=== PATIENT | female | born 1980 | race Two or more races ===

== ENCOUNTER 2022-01-16 07:12 | Inpatient (IN) | payer SELFPAY ==
[~2022-01-16] VITALS: Ht 154.9 cm; Wt 61.8 kg
[2022-01-16 07:30] VITALS: BP 117/54
[2022-01-16] MEDS ORDERED: IV RINGERS,LACTATED 1000ML 1,000 ML IV SCH (08:00)
[2022-01-16] MEDS ORDERED: IV NORMAL SALINE 1000ML BAG 1,000 ML IV SCH ×2 (08:00→13:30)
[2022-01-16] MEDS ORDERED: CITRIC ACID/SODIUM CITRATE 30 ML SOLUTION. PO ONE (08:00)
[2022-01-16] MEDS ORDERED: OXYTOCIN 10 UNIT/ML VIAL. ONE ×2 (08:01→11:04)
[2022-01-16] MEDS ORDERED: PROPOFOL 10 MG/ML (20ML) VIAL. IV ONE (08:01)
[2022-01-16] MEDS ORDERED: LIDOCAINE 1% PF 5 ML VIAL. ONE (08:01)
[2022-01-16] MEDS ORDERED: MORPHINE PF 10 MG/10 ML AMPUL. ONE (08:04)
[2022-01-16] MEDS ORDERED: fentaNYL PF VIAL 100 MCG/2 ML VIAL ONE ×3 (08:04→13:13)
[2022-01-16] MEDS ORDERED: SUCCINYLCHOLINE 200 MG/10 ML VIAL. ONE (08:12)
[2022-01-16 08:25] LABS: HEMATOCRIT 40.2 % (36.0-47.0); HEMOGLOBIN 13.2 g/dL (12.0-15.5); RED BLOOD COUNT 4.33 x10^6/uL (3.50-5.40); RED CELL DISTRIBUTION WIDTH 13.9 % (11.5-14.5)
--- NOTE | 2022-01-16 08:27 | PDOC1 ---
PUBLIC RECORDS OFFICER H&P Date of Admission: Date of Admission: Jan 16, 2022 at 07:12 History of Present Illness: EDC: 01/22/22 LMP: 04[birth year]17/21 41y @ 39.1 by L=21 presented to L&D with ctxs. The pt was found to be dilated to 3 cm with regular ctxs. The pt was scheduled for a repeat C/S the following Wednesday, so she was placed on the schedule for today. The pt s first delivery was a TSVD. The 2nd was a delivery at 30 wks. She states that she presented to the hospital with pain and bleeding. It is unclear if she was in labor. She states that she was told that - the baby could not come down. It is unclear if this means that the baby was malpositioned or she wasnt progressing. She states that the nurse called the doctor with this information at 11 pm and he told them to put her on for a C/S at 7 am. After the delivery she did not see the baby until she was d/suma. At that time the baby was in the ICU. The baby 4 days after . Her next was a scheduled C/S. The first C/S was a vertical midline and the following on was a Pfannenstiel. She would prefer to use the Pfannenstiel for this C/S. Discussed timing of delivery. PMH: Denies PSH: C/S x 2 Meds: PNV All: NKDA OBHx: TSVD x 1, 30wk C/S ( demise), TC/S x 1 SH: no tob, no EtOH FH: noncontributory Allergies: Coded Allergies: No Known Drug Allergies (Unverified , 01/16/22) Physical Exam: PE: GENERAL: No apparent distress. Alert and oriented. HEENT: Head normocephalic, atraumatic. NECK: Supple LUNGS: Clear to auscultation. HEART: RRR, S1, S2 present, pulses intact ABDOMEN: Soft, positive bowel sounds. EXTREMITIES: No cyanosis or edema. NEUROLOGIC: Normal speech, normal tone PSYCHIATRIC: Normal affect, normal mood. SKIN: No ulceration. FHT: 140s +acels/no decels/mLTV [place]: 1-2 min SVE: 3/100/-2 Labs: Laboratory Tests Test 01/16/22 07:45 White Blood Count 8.0 x10^3/uL (4.0-11.0) Red Blood Count 4.33 x10^6/uL (3.50-5.40) Hemoglobin 13.2 g/dL (12.0-15.5) Hematocrit 40.2 % (36.0-47.0) Mean Corpuscular Volume 93 fL (79-100) Mean Corpuscular Hemoglobin 31 pg (25-35) Mean Corpuscular Hemoglobin Concent 33 g/dL (31-37) Red Cell Distribution Width 13.9 % (11.5-14.5) Platelet Count 178 x10^3/uL (140-400) SARS-CoV-2 Antigen (Rapid) Negative (NEGATIVE) Laboratory Tests 01/16/22 07:45 Laboratory Tests 01/16/22 07:45 Assessment & Plan: A/P 41y @ 39.1 by L=21 1.) JOHANNA from [place] 2.) AMA 3.) Prev C/S x 2 - repeat scheduled for 01/19/22 at 0800 4.) H/o demise - unclear etiology 5.) H/o PTD - 30wks 6.) Covid vaccine given 07/28/21, 09/11/21 7.) TDAP given 12/08/21 8.) Fetus cat I FHT 9.) GBS pos CAROLINA PITTS MD Jan 16, 2022 08:27
[2022-01-16] MEDS ORDERED: MIDAZOLAM HCL/PF 2 MG/2 ML VIAL. ONE (09:11)
[2022-01-16] MEDS ORDERED: ROCURONIUM 50 MG/5 ML VIAL. ONE ×2 (09:26→11:33)
[2022-01-16] MEDS ORDERED: SUGAMMADEX SODIUM 200 MG/2 ML VIAL. IVP ONE (09:30)
[2022-01-16 10:54] LABS: BILIRUBIN,URINE NEGATIVE (NEG); CLARITY,URINE CLEAR; COLOR,URINE YELLOW; NITRITE,URINE NEGATIVE (NEG); PH,URINE 5.5 (<5.0-8.0); PROTEIN,URINE NEGATIVE (NEG-TRACE); UROBILINOGEN,URINE 0.2 mg/dL (0.2 mg/dL)
[2022-01-16 10:55] LABS: BACTERIA,URINE FEW /HPF (0-FEW); RBC,URINE 0 /HPF (0-2)
[2022-01-16] MEDS ORDERED: HYDROmorphone 2 MG/ML INJ. ONE (11:33)
[2022-01-16] MEDS ORDERED: ceFAZolin 2GM PREMIX 2 GM/50 ML BAG IV ONE (12:00)
[2022-01-16] MEDS ORDERED: ALBUMIN HUMAN 5% 500 ML IV ONE ×2 (12:30)
--- NOTE | 2022-01-16 12:40 | OP ---
DATE OF SURGERY: 01/16/2022 PREOPERATIVE DIAGNOSIS: Bladder perforation or injury during . POSTOPERATIVE DIAGNOSIS: Bladder perforation or injury during . PROCEDURE PERFORMED: 1. Complex cystorrhaphy or repair of bladder. 2. Lysis of pelvic adhesions. SURGEON: Dr. Mckeon. ANESTHESIA: General. Please see Dr. Quinones's dictation for complete details of fluids and blood loss. This is a 41-year-old female with history of 2 prior C-sections, here for her third , which is performed emergently. During the , there were many adhesions from the uterus to the bladder and there were multiple bladder lacerations occurred when the baby was delivered emergently. I was called to the operating room to assess and repair. Upon inspection and exploring the bladder, there were multiple right lower quadrant adhesions on the bladder, there was a posterior wall laceration of the bladder and an anterior or dome laceration of the bladder. I performed lysis of adhesions, removing the bladder from the right pelvic wall and also lyse the adhesions and remove the bladder from the uterus to free up in order to repair. I then turned my attention to the posterior defect in the bladder, which did appear to spare the ureteral orifices, which were visualized. She did have urine output during the case. The defect was horizontal with a small vertical extension, I closed up the horizontal incision using a 2-0 Vicryl stitch in a running fashion. I then oversewed that using a 3-0 chromic stitch. There was a left posterior wall lateral defect as well, which was closed in the same fashion, I also closed it posteriorly outside the bladder to add extra layer of protection from fistula formation. I then turned my attention to the dome perforation, which was on the anterior dome of the bladder. I used a 3-0 Vicryl stitch in a running fashion to reapproximate the mucosa and then a 3-0 Vicryl stitch to oversew the bladder edge to provide a 2-layer closure of the dome of the bladder. The closure was made watertight to the best of my ability. There was minimal blood loss. All sponge and instrument counts were correct at the time of my departure. Dr. Quinones will place a SAM drain, which can remain in place for approximately 1 week. I would leave the Chavez catheter in place for approximately one month and then perform a cystogram before removing the catheter. She should have a CT urogram to ensure that the ureters were not involved in the bladder injury; however, I did visualize the UOs and there was urine refluxing into the bladder, so there is a low suspicion for ureteral injury, but this is just a precaution. Again, she will need to be discharged home with a Chavez catheter and SAM drain, likely SAM for a week and Chavez for 1 month. TALYA/EDWIGE DR: Jose TID: [id number]
[2022-01-16] MEDS ORDERED: MMR per PROTOCOL. MC PRN (13:30)
[2022-01-16] MEDS ORDERED: TDaP (BOOSTRIX) per PROTOCOL. MC PRN (13:30)
[2022-01-16] MEDS ORDERED: 0.9 % SODIUM CHLORIDE 10 ML DISP.SYRIN. IV PRN (13:30)
[2022-01-16] MEDS ORDERED: oxyCODONE/APAP 5/325 1 TAB TABLET PO PRN (13:30)
[2022-01-16] MEDS ORDERED: NALOXONE 0.4 MG/ML VIAL. IV PRN (13:30)
[2022-01-16] MEDS ORDERED: BENZOCAINE 20% TOPICAL AEROSOL SPRAY 57GM CAN. TP PRN (13:30)
[2022-01-16] MEDS ORDERED: ACETAMINOPHEN 325 MG TABLET. PO PRN (13:30)
[2022-01-16] MEDS ORDERED: diphenhydrAMINE ORAL ELIXIR 12.5 MG/5 ML ML PO PRN (13:30)
[2022-01-16] MEDS ORDERED: OXYTOCIN 30 UNIT/500 ML PREMIX 500 ML IV PRN (13:30)
[2022-01-16] MEDS: MORPHINE SULFATE 30 ML IV PRN ×2 (13:43→23:33)
--- NOTE | 2022-01-16 16:41 | PDOC4 ---
OPERATIVE NOTE: PreOp Dx: 1.) IUP @ 39.1 by L=21, 2.) Active labor, 3.) JOHANNA from [place], 4.) AMA, 5.) Prev C/S x 2, 6.) H/o demise - unclear etiology, 7.) H/o PTD - 30wks, 8.) GBS pos PostOp Dx: same Procedure: RLTCS Surgeon: Sharda Pitts Anesthesia: Spinal -> GETA EBL: 1500 cc Fluids 4400 cc crystalloid, 1 L colloid Complications: Bladder injury Findings: viable female delivered at 0900. Wt 6 lb 13 oz. APGARS 7/9. Significant serosal adhesion in the midline and on the right lateral side wall. Nml tubes and ovaries Path: Cord blood and placenta CAROLINA PITTS MD Jan 16, 2022 16:41
[2022-01-16] MEDS: FERROUS SULFATE 325 MG TABLET. PO SCH (17:00)
[2022-01-16 17:07] LABS: BASO % 0 % (0-3); EOS % 0 % (0-3); HEMATOCRIT 26.4 % (36.0-47.0); HEMOGLOBIN 8.8 g/dL (12.0-15.5); LYMPH % 11 % (24-48); MEAN CORPUSCULAR HEMOGLOBIN 31 pg (25-35); MEAN CORPUSCULAR HGB CONC 33 g/dL (31-37); MEAN CORPUSCULAR VOLUME 92 fL (79-100); MONO # 0.5 x10^3/uL (0.0-1.1); MONO % 6 % (0-9); NEUT # 7.6 x10^3/uL (1.8-7.7); NEUT % 83 % (31-73); PLATELET COUNT 139 x10^3/uL (140-400); RED BLOOD COUNT 2.87 x10^6/uL (3.50-5.40); WHITE BLOOD COUNT 9.1 x10^3/uL (4.0-11.0)
[2022-01-16 17:12] LABS: CREATININE 0.6 mg/dL (0.6-1.0); GFR 111.3
--- NOTE | 2022-01-16 18:40 | OP ---
DATE OF SURGERY: 01/16/2022 PREOPERATIVE DIAGNOSES: 1. Intrauterine at 39 weeks and 1 day by last menstrual period equal to 21-week ultrasound. 2. Active labor. 3. Transfer of care from [place]. 4. Advanced maternal age. 5. Previous section x 2. 6. History of demise with unclear etiology. 7. History of delivery at 30 weeks. 8. Group B Streptococcus positive. POSTOPERATIVE DIAGNOSES: 1. Intrauterine at 39 weeks and 1 day by last menstrual period equal to 21-week ultrasound. 2. Active labor. 3. Transfer of care from [place]. 4. Advanced maternal age. 5. Previous section x 2. 6. History of demise with unclear etiology. 7. History of delivery at 30 weeks. 8. Group B Streptococcus positive. PROCEDURES: 1. Repeat low transverse . 2. Cystotomy repair. SURGEON: Deejay Quinones MD ANESTHESIA: Spinal, converted to general endotracheal intubation. ESTIMATED BLOOD LOSS: 1500 mL. FLUIDS: 4400 mL of crystalloid and 1 liter of colloid. COMPLICATIONS: Bladder injury. FINDINGS: Viable female delivered at 0900, weighing 6 pounds 13 ounces with Apgars of 7 and 9. Significant serosal adhesions noted from the midline to the right lateral sidewall. Normal tubes and ovaries. PATHOLOGY: Cord blood and placenta. DESCRIPTION OF PROCEDURE: The patient was taken to the operating room, where spinal was placed without difficulty. The patient was prepped and draped in a normal sterile fashion. Her previous Pfannenstiel skin incision was used and the incision was carried down to underlying layer of fascia. The fascia was then nicked in the midline. The fascial incision was then extended laterally with Castelan scissors. Superior aspect of the fascial incision was grasped with Tanja clamps, elevated and the underlying rectus muscle was dissected off with a scalpel. Attention was then turned to the inferior aspect of the fascial incision, which was grabbed with Tanja clamps, elevated and the underlying rectus muscle was dissected off with Castelan scissors. The midline of the rectus muscle was identified and to allow for the peritoneum to be grasped with 2 hemostats. The peritoneum was then tented up and entered sharply with Metzenbaum scissors. At that point, digital examination of the peritoneal opening revealed significant adhesions on the right side to the midline. At that point, the peritoneal incision was extended superiorly and inferiorly with good visualization of bladder with traction and countertraction. At that point, the serosal adhesion was still felt on the right side, it could not easily be taken down. At that point, the Andre ring was then placed to better visualize the lower uterine segment. There was a significant serosal adhesion on the midline of the uterus. It was difficult to tell if the adhesion contained the bladder. There was no definitive plane. A bladder flap was attempted to be created, but taking down the serosal adhesions led to heavy bleeding, leading me to believe that the adhesion was more of a serosal adhesion than the bladder being adhesed so high on the lower uterine segment. At that point, the lower uterine segment was incised in transverse fashion with the scalpel. Hysterotomy was extended with traction and countertraction. At that point, the infant's head was flexed and brought to the hysterotomy. The rest of was delivered atraumatically. The cord was double clamped and cut and the was handed over to the waiting hospice superintendent. At that point, the placenta was removed manually and cleared of all clots and debris. Examination of the uterine incision revealed the Chavez catheter exiting the opening. Once the bladder injury was identified, Urology was consulted for evaluation and repair. See separate operative note by Dr. Mckeon for detail. Once the bladder repair portion had been completed, the uterine hysterotomy was then repaired with #1 chromic in running locked fashion. Second layer of the same suture was used to imbricate. There was a little bleeding at the midline that was made hemostatic with a evdplr-oh-icrud stitch. At that point, the gutters were copiously irrigated and cleared of all clots and debris. An incision was made approximately two-thirds between the ischial spine on the right, so that the SAM drain was placed into the left lateral edge of the bladder underneath the bladder. Once the SAM was placed, the peritoneum was reapproximated with 2-0 Vicryl in a running fashion. The muscle was reapproximated with 2-0 Vicryl in a running fashion. The fascia was then closed with 0 Vicryl in a running fashion. The skin was closed with 3-0 Monocryl in a subcuticular manner. Sponges, laps and needles were correct x 5. Two grams of Ancef were given prior to the procedure and another dose was given due to the duration of the surgery. The patient was taken to recovery room in stable condition. AMANDA DR: Ita TID: [id number] MTDD
[2022-01-16] MEDS ORDERED: IOHEXOL 300 MG/ML 100ML VIAL. IV ONE (19:15)
[2022-01-16] MEDS ORDERED: CONTRAST GIVEN. MC PRN (19:30)
--- NOTE | 2022-01-16 19:31 | NUR ---
Transported pt by bed to Radiology for CT scan. Chavez to dependent drainage, SAM drain secured, IV on pump, TUB TENDER pump, x2 personell to transfer. SURN and GTRN
--- NOTE | 2022-01-16 20:28 | NUR ---
Refer to QS charted VS graphic stored to pt record on monitored bed.
--- NOTE | 2022-01-16 20:29 | NUR ---
Returned Pt from CT Radiology back to room 385 L&D by gladis. RONNY. Pt tolerated procedure well. pt signalled thumbs up doing ok. pt using DYE LAB TECHNICIAN demand button as needed for pain control.
[2022-01-16 20:34] VITALS: BP 102/68
--- NOTE | 2022-01-16 23:55 | RAD ---
PQRS Compliance Statement: One or more of the following individualized dose reduction techniques were utilized for this examinat ion: 1. Automated exposure control 2. Adjustment of the mA and/or kV according to patient size 3. Use of iterative reconstruction technique CT ABDOMEN+PELVIS WO+W Clinical Indication: Reason: BLADDER REAPIR AFTER S/P C SECTION URUGRAM PROTOCAL / Spl. Instructions: DO @ 1900 PER PROVIDER, OMNI 300, 75 ML IV, PERRY MALFUNTION LAST IMAG 20M / History: Comparison: None. TECHNIQUE: Helical CT imaging of the abdomen and pelvis is performed before and after 75 cc of Omnipa que 300 IV contrast. There are portal venous and delayed phases. Findings: There is bilateral dependent atelectasis. The cardiac size is normal. There is expected intraperitoneal free air. The liver, gallbladder, spleen, pancreas, adrenal glands, abdominal aorta, and kidneys are normal. There are prominent bilateral gonadal veins. There is uterus. No fluid in the endometrial canal is identified. There is a anterior uterine fibroid measuring 5.4 x 5 x 6 cm. Much of the colon is decompressed. There is no dilated small bowel. The stomach is unremarkable. Ther e is air along the rectus muscles inferiorly, likely postsurgical. There is a surgical drain in the pelvis. There is a Chvaez catheter in the urinary bladder. No thicken ing of the urinary bladder wall. There is a small amount of fluid in the bladder. On the delay phase images, the urinary bladder is nearly completely opacified with IV contrast. No extravasation of cont rast is identified. No pelvic free fluid is seen. No acute bone abnormality. IMPRESSION: Enlarged uterus. There is a surgical drain in the pelvis. There is no urinary bladder leak . Electronically signed by: Karthikeyan Rivas MD (01/16/2022 11:52 PM) [facility]
[2022-01-17 00:01] VITALS: BP 99/52
[2022-01-17 03:26] VITALS: BP 92/55
[2022-01-17 06:58] LABS: HEMATOCRIT 23.2 % (36.0-47.0); HEMOGLOBIN 7.8 g/dL (12.0-15.5); RED BLOOD COUNT 2.51 x10^6/uL (3.50-5.40); RED CELL DISTRIBUTION WIDTH 14.3 % (11.5-14.5); WHITE BLOOD COUNT 6.5 x10^3/uL (4.0-11.0)
[2022-01-17 08:00] VITALS: BP 104/57
[2022-01-17] MEDS: FERROUS SULFATE 325 MG TABLET. PO SCH ×2 (08:00→17:00)
[2022-01-17] MEDS: MULTIVITAMIN with MINERAL TABLET. PO SCH (09:00)
[2022-01-17] MEDS: PRENATAL MULTIVITAMIN TABLET. PO SCH (09:00)
[2022-01-17] MEDS: IBUPROFEN 400 MG TABLET. PO PRN ×2 (10:32→19:24)
[2022-01-17 10:45] LABS: ALBUMIN 2.5 g/dL (3.4-5.0); CALCIUM 7.4 mg/dL (8.5-10.1); CREATININE 0.5 mg/dL (0.6-1.0); GFR 137.4; POTASSIUM 3.9 mmol/L (3.5-5.1); TOTAL BILIRUBIN 1.1 mg/dL (0.2-1.0)
[2022-01-17] MEDS: oxyCODONE/APAP 5/325 1 TAB TABLET PO PRN ×3 (12:30→23:34)
--- NOTE | 2022-01-17 12:32 | PDOC ---
PROGRESS NOTE DATE OF SERVICE: DATE: 01/17/22 TIME: 12:29 CHIEF COMPLAINT: post SUBJECTIVE: HPI: S/p 01/16 with bladder repair by Dr. Mckeon. Barbour catheter draining with good urine output. Yellow urine in tubing. SAM with SS drainage. No complaints from patient. OBJECTIVE: Vital Signs: Vital Signs Date Time Temp Pulse Resp B/P (MAP) Pulse Ox O2 Delivery O2 Flow Rate FiO2 01/17/22 08:00 98.6 90 13 104/57 (73) 98 Room Air 98.6 01/17/22 04:00 97.9 76 16 93 97.9 01/17/22 03:26 74 16 92/55 (67) 95 01/17/22 00:03 16 98 Room Air 01/17/22 00:01 98.0 82 16 99/52 (68) 95 98.0 01/16/22 23:33 18 99 Room Air 01/16/22 20:34 98.6 82 18 102/68 (79) 99 Room Air 98.6 01/16/22 20:30 Room Air 01/16/22 16:58 Nasal Cannula 2.0 01/16/22 13:43 16 100 NonRebreather Mask 6.0 I & O Intake and Output 01/17/22 07:00 Intake Total 50 ml Output Total 3620 ml Balance -3570 ml Intake Oral 20 ml IV Total 30 ml Output Urine Total 3475 ml Drainage Total 145 ml # Sanitary Pads 0 PHYSICAL EXAM: Physical Exam: General: Pleasant, no acute distress, well groomed Eyes: conjunctiva anicteric, eyes full range of motion ENT: moist oral mucosa, normal dentition Neck: Trachea midline, no masses Respiratory: unlabored breathing, not using accessory muscles, no crackles or wheezes Abdomen: nontender, nondistended, no hepatosplenomegaly, no masses. incision with dressing in place. SAM with SS output. Skin: no rashes or skin lesions on visualized skin Psych: normal mood, affect. Alert and oriented x 3. : barbour catheter with yellow urine in tubing LABS: Laboratory Tests Test 01/16/22 07:31 01/16/22 07:45 01/16/22 16:42 01/17/22 06:25 Urine Collection Type Unknown Urine Color Yellow Urine Clarity Clear Urine pH 5.5 (<5.0-8.0) Urine Specific [place] 1.025 (1.000-1.030) Urine Protein Negative mg/dL (NEG-TRACE) Urine Glucose (UA) Negative mg/dL (NEG) Urine Ketones (Stick) Negative mg/dL (NEG) Urine Blood Negative (NEG) Urine Nitrite Negative (NEG) Urine Bilirubin Negative (NEG) Urine Urobilinogen Dipstick 0.2 mg/dL (0.2 mg/dL) Urine Leukocyte Esterase Small (NEG) Urine RBC 0 /HPF (0-2) Urine WBC 5-10 /HPF (0-4) Urine Squamous Epithelial Cells Many /LPF Urine Bacteria Few /HPF (0-FEW) White Blood Count 8.0 x10^3/uL (4.0-11.0) 9.1 x10^3/uL (4.0-11.0) 6.5 x10^3/uL (4.0-11.0) Red Blood Count 4.33 x10^6/uL (3.50-5.40) 2.87 x10^6/uL (3.50-5.40) 2.51 x10^6/uL (3.50-5.40) Hemoglobin 13.2 g/dL (12.0-15.5) 8.8 g/dL (12.0-15.5) 7.8 g/dL (12.0-15.5) Hematocrit 40.2 % (36.0-47.0) 26.4 % (36.0-47.0) 23.2 % (36.0-47.0) Mean Corpuscular Volume 93 fL (79-100) 92 fL (79-100) 92 fL (79-100) Mean Corpuscular Hemoglobin 31 pg (25-35) 31 pg (25-35) 31 pg (25-35) Mean Corpuscular Hemoglobin Concent 33 g/dL (31-37) 33 g/dL (31-37) 34 g/dL (31-37) Red Cell Distribution Width 13.9 % (11.5-14.5) 14.0 % (11.5-14.5) 14.3 % (11.5-14.5) Platelet Count 178 x10^3/uL (140-400) 139 x10^3/uL (140-400) 146 x10^3/uL (140-400) Treponema pallidum Antibody Nonreactive (Nonreactive) Coronavirus (COVID-19)(PCR) Not detected (NOT DETECTD) SARS-CoV-2 Antigen (Rapid) Negative (NEGATIVE) Neutrophils (%) (Auto) 83 % (31-73) Lymphocytes (%) (Auto) 11 % (24-48) Monocytes (%) (Auto) 6 % (0-9) Eosinophils (%) (Auto) 0 % (0-3) Basophils (%) (Auto) 0 % (0-3) Neutrophils # (Auto) 7.6 x10^3/uL (1.8-7.7) Lymphocytes # (Auto) 1.0 x10^3/uL (1.0-4.8) Monocytes # (Auto) 0.5 x10^3/uL (0.0-1.1) Eosinophils # (Auto) 0.0 x10^3/uL (0.0-0.7) Basophils # (Auto) 0.0 x10^3/uL (0.0-0.2) Creatinine 0.6 mg/dL (0.6-1.0) 0.5 mg/dL (0.6-1.0) Estimated GFR (Cockcroft-Gault) 111.3 137.4 Sodium Level 140 mmol/L (136-145) Potassium Level 3.9 mmol/L (3.5-5.1) Chloride Level 106 mmol/L (98-107) Carbon Dioxide Level 27 mmol/L (21-32) Anion Gap 7 (6-14) Blood Urea Nitrogen 5 mg/dL (7-20) BUN/Creatinine Ratio 10 (6-20) Glucose Level 78 mg/dL (70-99) Calcium Level 7.4 mg/dL (8.5-10.1) Total Bilirubin 1.1 mg/dL (0.2-1.0) Aspartate Amino Transf (AST/SGOT) 28 U/L (15-37) Alanine Aminotransferase (ALT/SGPT) 20 U/L (14-59) Alkaline Phosphatase 55 U/L (46-116) Total Protein 5.0 g/dL (6.4-8.2) Albumin 2.5 g/dL (3.4-5.0) Albumin/Globulin Ratio 1.0 (1.0-1.7) MEDICATIONS: Current Medications Medications (Trade) Dose Ordered Sig/Regino Start Time Stop Time Status Last Admin Dose Admin Acetaminophen (Tylenol) 650 mg PRN Q6HRS PRN 01/16/22 13:30 Albumin Human 500 ml @ As Directed STK-MED ONCE 01/16/22 12:30 01/16/22 12:31 DC Benzocaine (Americaine) 1 spray PRN Q4HRS PRN 01/16/22 13:30 Cefazolin Sodium/ Dextrose 50 ml @ 100 mls/hr 1X ONCE 01/16/22 12:15 01/16/22 12:44 DC Citric Acid/ Sodium Citrate (Bicitra) 30 ml 1X ONCE 01/16/22 08:00 01/16/22 08:01 DC 01/16/22 08:00 30 ML Diphenhydramine HCl (Benadryl Oral Elixir) 12.5 mg PRN Q6HRS PRN 01/16/22 13:30 Docusate Sodium (Colace) 100 mg PRN BID PRN 01/16/22 13:30 Fentanyl Citrate (Fentanyl 2ml Vial) 100 mcg STK-MED ONCE 01/16/22 13:13 01/16/22 13:13 DC Ferrous Sulfate (Feosol) 325 mg BIDWMEALS 01/16/22 17:00 Hydromorphone HCl (Dilaudid) 2 mg STK-MED ONCE 01/16/22 11:33 01/16/22 11:34 DC Ibuprofen (Motrin) 800 mg PRN Q8HRS PRN 01/16/22 13:30 01/17/22 10:32 800 MG Info (CONTRAST GIVEN -- Rx MONITORING) 1 each PRN DAILY PRN 01/16/22 19:30 01/18/22 19:29 Info (Do NOT chart on this placeholder) 1 ea PRN 1X PRN 01/16/22 13:30 Iohexol (Omnipaque 300 Mg/ml) 75 ml 1X ONCE 01/16/22 19:15 01/16/22 19:16 DC 01/16/22 19:48 75 ML Lidocaine HCl (Xylocaine-Mpf 1% 5ml Vial) 5 ml STK-MED ONCE 01/16/22 08:01 01/16/22 08:01 DC Midazolam HCl (Versed) 2 mg STK-MED ONCE 01/16/22 09:11 01/16/22 09:12 DC Morphine Sulfate 30 ml @ 0 mls/hr CONT PRN PRN 01/16/22 13:30 01/16/22 23:33 6 MLS/HR Morphine Sulfate (Morphine Preservative Free) 10 mg STK-MED ONCE 01/16/22 08:04 01/16/22 08:05 DC Multivitamins (Thera M Plus) 1 tab DAILY 01/17/22 09:00 Naloxone HCl (Narcan) 0.4 mg PRN Q2MIN PRN 01/16/22 13:30 Oxycodone/ Acetaminophen (Percocet 5/325) 2 tab PRN Q4HRS PRN 01/16/22 13:30 Oxytocin 500 ml @ 125 mls/hr CONT PRN 01/16/22 13:30 01/16/22 21:29 DC Oxytocin (Pitocin) 10 unit STK-MED ONCE 01/16/22 11:04 01/16/22 11:04 DC Multivit/ Folic Acid/Iron (Multivitamin ) 1 tab DAILY 01/17/22 09:00 Propofol (Diprivan) 200 mg STK-MED ONCE 01/16/22 08:01 01/16/22 08:01 DC Ringer's Solution 1,000 ml @ 125 mls/hr Q8H 01/16/22 08:00 01/16/22 13:20 DC Rocuronium [place] (Zemuron) 50 mg STK-MED ONCE 01/16/22 11:33 01/16/22 11:33 DC Sodium Chloride 1,000 ml @ 25 mls/hr Q24H 01/16/22 13:30 01/16/22 16:52 25 MLS/HR Sodium Chloride (Normal Saline Flush) 3 ml QSHIFT PRN 01/16/22 13:30 Succinylcholine Chloride (Anectine) 200 mg STK-MED ONCE 01/16/22 08:12 01/16/22 08:12 DC Sugammadex Sodium (Bridion) 200 mg 1X ONCE 01/16/22 09:30 01/16/22 09:31 DC ASSESSMENT & PLAN ---S/p bladder repair CT A/P completed last night without abnormality. Creat stable Barbour to stay in for one month. SAM to stay in for one week. Will see patient tomorrow for more education for discharge. At this time, plan is to discharge on Wednesday. Agree with plan Follow up is essential for the best outcome Dr Mckeon D/w Dr. MckeonPHYSICAL EXAMINATION: GENERAL: Gen. appearance: No acute distress. Mood/affect: Pleasant. HEENT: Head: Normocephalic, atraumatic. Airway Impairment: No. CHEST: Shape and expansion: Normal. Expansion: Normal. SKIN: General: Warm. Color: Good. GENITOURINARY:External genitalia - wnl. NEUROLOGICAL: Mental status: Alert and oriented 3. Language: Normal. Urology will follow. DORIS ALBERT APRN Jan 17, 2022 12:32 ALLYSON MCKEON DO Jan 18, 2022 14:51
[2022-01-17 12:50] VITALS: BP 105/58
--- NOTE | 2022-01-17 14:11 | PDOC ---
PLUG STITCHER PROGRESS NOTE Date of Service: DATE: 01/17/22 TIME: 14:04 Subjective: Pain well managed with PO meds. Pt. reports generalized pruritus, onset last noc, has increased today. Tolerates regular diet without complaints. Objective: Objective: Abd dressing c/d/i, SAM with SS drainage. Chavez to DD. FF @ U/1, scant lochia. No rash/hives/erythema. Vital Signs: Vital Signs Date Time Temp Pulse Resp B/P (MAP) Pulse Ox O2 Delivery O2 Flow Rate FiO2 01/16/22 07:30 98.5 80 18 117/54 (75) Room Air 98.5 01/16/22 13:43 100 6.0 Vital Signs Date Time Temp Pulse Resp B/P (MAP) Pulse Ox O2 Delivery O2 Flow Rate FiO2 01/17/22 12:50 80 14 105/58 (74) 94 Room Air 01/17/22 08:00 98.6 98.6 01/16/22 16:58 2.0 Labs: Laboratory Tests Test 01/16/22 16:42 01/17/22 06:25 White Blood Count 9.1 x10^3/uL (4.0-11.0) 6.5 x10^3/uL (4.0-11.0) Red Blood Count 2.87 x10^6/uL (3.50-5.40) L 2.51 x10^6/uL (3.50-5.40) L Hemoglobin 8.8 g/dL (12.0-15.5) L 7.8 g/dL (12.0-15.5) L Hematocrit 26.4 % (36.0-47.0) L 23.2 % (36.0-47.0) L Mean Corpuscular Volume 92 fL (79-100) 92 fL (79-100) Mean Corpuscular Hemoglobin 31 pg (25-35) 31 pg (25-35) Mean Corpuscular Hemoglobin Concent 33 g/dL (31-37) 34 g/dL (31-37) Red Cell Distribution Width 14.0 % (11.5-14.5) 14.3 % (11.5-14.5) Platelet Count 139 x10^3/uL (140-400) L 146 x10^3/uL (140-400) Neutrophils (%) (Auto) 83 % (31-73) H Lymphocytes (%) (Auto) 11 % (24-48) L Monocytes (%) (Auto) 6 % (0-9) Eosinophils (%) (Auto) 0 % (0-3) Basophils (%) (Auto) 0 % (0-3) Neutrophils # (Auto) 7.6 x10^3/uL (1.8-7.7) Lymphocytes # (Auto) 1.0 x10^3/uL (1.0-4.8) Monocytes # (Auto) 0.5 x10^3/uL (0.0-1.1) Eosinophils # (Auto) 0.0 x10^3/uL (0.0-0.7) Basophils # (Auto) 0.0 x10^3/uL (0.0-0.2) Creatinine 0.6 mg/dL (0.6-1.0) 0.5 mg/dL (0.6-1.0) L Estimated GFR (Cockcroft-Gault) 111.3 137.4 Sodium Level 140 mmol/L (136-145) Potassium Level 3.9 mmol/L (3.5-5.1) Chloride Level 106 mmol/L (98-107) Carbon Dioxide Level 27 mmol/L (21-32) Anion Gap 7 (6-14) Blood Urea Nitrogen 5 mg/dL (7-20) L BUN/Creatinine Ratio 10 (6-20) Glucose Level 78 mg/dL (70-99) Calcium Level 7.4 mg/dL (8.5-10.1) L Total Bilirubin 1.1 mg/dL (0.2-1.0) H Aspartate Amino Transferase (AST) 28 U/L (15-37) Alanine Aminotransferase (ALT) 20 U/L (14-59) Alkaline Phosphatase 55 U/L (46-116) Total Protein 5.0 g/dL (6.4-8.2) L Albumin 2.5 g/dL (3.4-5.0) L Albumin/Globulin Ratio 1.0 (1.0-1.7) Laboratory Tests 01/16/22 16:42 01/17/22 06:25 Laboratory Tests 01/16/22 16:42 01/17/22 06:25 Laboratory Tests 01/17/22 06:25 Physical Exam: GENERAL: No apparent distress. Alert and oriented. HEENT: Head normocephalic, atraumatic. NECK: Supple LUNGS: Clear to auscultation. HEART: RRR, S1, S2 present, pulses intact ABDOMEN: Soft, positive bowel sounds. EXTREMITIES: No cyanosis or edema. NEUROLOGIC: Normal speech, normal tone PSYCHIATRIC: Normal affect, normal mood. SKIN: No ulceration. Assessment & Plan: POD#1 s/p rLTCS with bladder repair. Routine PP course. Increase activity as tolerated. Plan Pepcid BID, Benadryl now. Up to bedside today. Urology continues to follow. Anticipate d/c Wednesday. GEETA LUCERO CNM Jan 17, 2022 14:11
[2022-01-17] MEDS: FAMOTIDINE 20 MG TABLET. PO SCH ×2 (14:42→21:57)
[2022-01-17 16:30] VITALS: BP 102/55
[2022-01-17 21:55] VITALS: BP 95/50
[2022-01-18] MEDS: IBUPROFEN 400 MG TABLET. PO PRN ×3 (04:43→23:33)
[2022-01-18 04:45] VITALS: BP 96/63
[2022-01-18 08:15] VITALS: BP 111/63
[2022-01-18] MEDS: MULTIVITAMIN with MINERAL TABLET. PO SCH (09:00)
--- NOTE | 2022-01-18 09:02 | PDOC ---
HEALTHCARE OR MEDICAL PROGRESS NOTE Date of Service: DATE: 01/18/22 TIME: 08:58 Subjective: Doing well. + flatus. Tolerates diet without difficulty. Otherwise denies complaints. Objective: Objective: dressing c/d/i. SAM with SS drainage. Chavez with pink tinged urine to DD, clearing. FF @ U/1, scant lochia. Vital Signs: Vital Signs Date Time Temp Pulse Resp B/P (MAP) Pulse Ox O2 Delivery O2 Flow Rate FiO2 01/17/22 08:00 98.6 90 13 104/57 (73) 98 Room Air 98.6 Vital Signs Date Time Temp Pulse Resp B/P (MAP) Pulse Ox O2 Delivery O2 Flow Rate FiO2 01/18/22 04:45 98.6 74 14 96/63 (74) Room Air 98.6 01/17/22 16:30 96 Physical Exam: GENERAL: No apparent distress. Alert and oriented. HEENT: Head normocephalic, atraumatic. NECK: Supple LUNGS: Clear to auscultation. HEART: RRR, S1, S2 present, pulses intact ABDOMEN: Soft, positive bowel sounds. EXTREMITIES: No cyanosis or edema. NEUROLOGIC: Normal speech, normal tone PSYCHIATRIC: Normal affect, normal mood. SKIN: No ulceration. Assessment & Plan: POD#2 s/p rLTCS with bladder repair. Up to shower today, remove dressing with assistance. Increase activity as tolerated. GEETA LUCERO CNM Jan 18, 2022 09:02
--- NOTE | 2022-01-18 10:26 | PDOC ---
PROGRESS NOTE DATE OF SERVICE: DATE: 01/18/22 TIME: 10:23 CHIEF COMPLAINT: SUBJECTIVE: HPI: Land [employer] phone used for entire visit Patient doing well this morning. Denies any complaints. Barbour catheter with clear pink urine. No clots noted. SAM with SS output. Output trending down. OBJECTIVE: Vital Signs: Vital Signs Date Time Temp Pulse Resp B/P (MAP) Pulse Ox O2 Delivery O2 Flow Rate FiO2 01/18/22 04:45 98.6 74 14 96/63 (74) Room Air 98.6 01/18/22 00:05 Room Air 01/17/22 23:34 Room Air 01/17/22 21:55 98.7 82 18 95/50 (65) Room Air 98.7 01/17/22 21:55 Room Air 01/17/22 20:28 Room Air 01/17/22 19:26 16 Room Air 01/17/22 16:30 98.7 80 16 102/55 (71) 96 Room Air 98.7 01/17/22 12:50 98.6 80 14 105/58 (74) 94 Room Air 98.6 01/17/22 12:30 20 I & O Intake and Output 01/18/22 07:00 Intake Total 1500 ml Output Total 4573 ml Balance -3073 ml Intake Oral 1500 ml Output Urine Total 4500 ml Drainage Total 73 ml PHYSICAL EXAM: Physical Exam: General: Pleasant, no acute distress, well groomed Eyes: conjunctiva anicteric, eyes full range of motion ENT: moist oral mucosa, normal dentition Neck: Trachea midline, no masses Respiratory: unlabored breathing, not using accessory muscles, no crackles or wheezes Cardiovascular: Regular rate and rhythm, no peripheral edema Abdomen: nontender, nondistended, no hepatosplenomegaly, no masses Skin: incision with dressing in place, SAM with SS output Psych: normal mood, affect. Alert and oriented x 3. :barbour catheter with clear pink urine LABS: Laboratory Tests Test 01/16/22 07:31 01/16/22 07:45 01/16/22 16:42 01/17/22 06:25 Urine Collection Type Unknown Urine Color Yellow Urine Clarity Clear Urine pH 5.5 (<5.0-8.0) Urine Specific [place] 1.025 (1.000-1.030) Urine Protein Negative mg/dL (NEG-TRACE) Urine Glucose (UA) Negative mg/dL (NEG) Urine Ketones (Stick) Negative mg/dL (NEG) Urine Blood Negative (NEG) Urine Nitrite Negative (NEG) Urine Bilirubin Negative (NEG) Urine Urobilinogen Dipstick 0.2 mg/dL (0.2 mg/dL) Urine Leukocyte Esterase Small (NEG) Urine RBC 0 /HPF (0-2) Urine WBC 5-10 /HPF (0-4) Urine Squamous Epithelial Cells Many /LPF Urine Bacteria Few /HPF (0-FEW) White Blood Count 8.0 x10^3/uL (4.0-11.0) 9.1 x10^3/uL (4.0-11.0) 6.5 x10^3/uL (4.0-11.0) Red Blood Count 4.33 x10^6/uL (3.50-5.40) 2.87 x10^6/uL (3.50-5.40) 2.51 x10^6/uL (3.50-5.40) Hemoglobin 13.2 g/dL (12.0-15.5) 8.8 g/dL (12.0-15.5) 7.8 g/dL (12.0-15.5) Hematocrit 40.2 % (36.0-47.0) 26.4 % (36.0-47.0) 23.2 % (36.0-47.0) Mean Corpuscular Volume 93 fL (79-100) 92 fL (79-100) 92 fL (79-100) Mean Corpuscular Hemoglobin 31 pg (25-35) 31 pg (25-35) 31 pg (25-35) Mean Corpuscular Hemoglobin Concent 33 g/dL (31-37) 33 g/dL (31-37) 34 g/dL (31-37) Red Cell Distribution Width 13.9 % (11.5-14.5) 14.0 % (11.5-14.5) 14.3 % (11.5-14.5) Platelet Count 178 x10^3/uL (140-400) 139 x10^3/uL (140-400) 146 x10^3/uL (140-400) Treponema pallidum Antibody Nonreactive (Nonreactive) Coronavirus (COVID-19)(PCR) Not detected (NOT DETECTD) SARS-CoV-2 Antigen (Rapid) Negative (NEGATIVE) Neutrophils (%) (Auto) 83 % (31-73) Lymphocytes (%) (Auto) 11 % (24-48) Monocytes (%) (Auto) 6 % (0-9) Eosinophils (%) (Auto) 0 % (0-3) Basophils (%) (Auto) 0 % (0-3) Neutrophils # (Auto) 7.6 x10^3/uL (1.8-7.7) Lymphocytes # (Auto) 1.0 x10^3/uL (1.0-4.8) Monocytes # (Auto) 0.5 x10^3/uL (0.0-1.1) Eosinophils # (Auto) 0.0 x10^3/uL (0.0-0.7) Basophils # (Auto) 0.0 x10^3/uL (0.0-0.2) Creatinine 0.6 mg/dL (0.6-1.0) 0.5 mg/dL (0.6-1.0) Estimated GFR (Cockcroft-Gault) 111.3 137.4 Sodium Level 140 mmol/L (136-145) Potassium Level 3.9 mmol/L (3.5-5.1) Chloride Level 106 mmol/L (98-107) Carbon Dioxide Level 27 mmol/L (21-32) Anion Gap 7 (6-14) Blood Urea Nitrogen 5 mg/dL (7-20) BUN/Creatinine Ratio 10 (6-20) Glucose Level 78 mg/dL (70-99) Calcium Level 7.4 mg/dL (8.5-10.1) Total Bilirubin 1.1 mg/dL (0.2-1.0) Aspartate Amino Transf (AST/SGOT) 28 U/L (15-37) Alanine Aminotransferase (ALT/SGPT) 20 U/L (14-59) Alkaline Phosphatase 55 U/L (46-116) Total Protein 5.0 g/dL (6.4-8.2) Albumin 2.5 g/dL (3.4-5.0) Albumin/Globulin Ratio 1.0 (1.0-1.7) Microbiology 01/16/22 Urine Culture - Final, Complete MEDICATIONS: Current Medications Medications (Trade) Dose Ordered Sig/Regino Start Time Stop Time Status Last Admin Dose Admin Acetaminophen (Tylenol) 650 mg PRN Q6HRS PRN 01/16/22 13:30 Albumin Human 500 ml @ As Directed STK-MED ONCE 01/16/22 12:30 01/16/22 12:31 DC Benzocaine (Americaine) 1 spray PRN Q4HRS PRN 01/16/22 13:30 Cefazolin Sodium/ Dextrose 50 ml @ 100 mls/hr 1X ONCE 01/16/22 12:15 01/16/22 12:44 DC Citric Acid/ Sodium Citrate (Bicitra) 30 ml 1X ONCE 01/16/22 08:00 01/16/22 08:01 DC 01/16/22 08:00 30 ML Diphenhydramine HCl (Benadryl Oral Elixir) 12.5 mg PRN Q6HRS PRN 01/16/22 13:30 01/17/22 14:42 12.5 MG Docusate Sodium (Colace) 100 mg PRN BID PRN 01/16/22 13:30 Famotidine (Pepcid) 20 mg BID 01/17/22 15:00 01/17/22 21:57 20 MG Fentanyl Citrate (Fentanyl 2ml Vial) 100 mcg STK-MED ONCE 01/16/22 13:13 01/16/22 13:13 DC Ferrous Sulfate (Feosol) 325 mg BIDWMEALS 01/16/22 17:00 Hydromorphone HCl (Dilaudid) 2 mg STK-MED ONCE 01/16/22 11:33 01/16/22 11:34 DC Ibuprofen (Motrin) 800 mg PRN Q8HRS PRN 01/16/22 13:30 01/18/22 04:43 800 MG Info (CONTRAST GIVEN -- Rx MONITORING) 1 each PRN DAILY PRN 01/16/22 19:30 01/18/22 02:34 DC Info (Do NOT chart on this placeholder) 1 ea PRN 1X PRN 01/16/22 13:30 01/18/22 02:34 DC Iohexol (Omnipaque 300 Mg/ml) 75 ml 1X ONCE 01/16/22 19:15 01/16/22 19:16 DC 01/16/22 19:48 75 ML Lidocaine HCl (Xylocaine-Mpf 1% 5ml Vial) 5 ml STK-MED ONCE 01/16/22 08:01 01/16/22 08:01 DC Midazolam HCl (Versed) 2 mg STK-MED ONCE 01/16/22 09:11 01/16/22 09:12 DC Morphine Sulfate 30 ml @ 0 mls/hr CONT PRN PRN 01/16/22 13:30 01/17/22 15:29 DC 01/16/22 23:33 6 MLS/HR Morphine Sulfate (Morphine Preservative Free) 10 mg STK-MED ONCE 01/16/22 08:04 01/16/22 08:05 DC Multivitamins (Thera M Plus) 1 tab DAILY 01/17/22 09:00 Naloxone HCl (Narcan) 0.4 mg PRN Q2MIN PRN 01/16/22 13:30 01/17/22 15:29 DC Oxycodone/ Acetaminophen (Percocet 5/325) 2 tab PRN Q4HRS PRN 01/16/22 13:30 01/17/22 23:34 2 TAB Oxytocin 500 ml @ 125 mls/hr CONT PRN 01/16/22 13:30 01/16/22 21:29 DC Oxytocin (Pitocin) 10 unit STK-MED ONCE 01/16/22 11:04 01/16/22 11:04 DC Multivit/ Folic Acid/Iron (Multivitamin ) 1 tab DAILY 01/17/22 09:00 Propofol (Diprivan) 200 mg STK-MED ONCE 01/16/22 08:01 01/16/22 08:01 DC Ringer's Solution 1,000 ml @ 125 mls/hr Q8H 01/16/22 08:00 01/16/22 13:20 DC Rocuronium [place] (Zemuron) 50 mg STK-MED ONCE 01/16/22 11:33 01/16/22 11:33 DC Sodium Chloride 1,000 ml @ 25 mls/hr Q24H 01/16/22 13:30 01/17/22 15:29 DC 01/16/22 16:52 25 MLS/HR Sodium Chloride (Normal Saline Flush) 3 ml QSHIFT PRN 01/16/22 13:30 Succinylcholine Chloride (Anectine) 200 mg STK-MED ONCE 01/16/22 08:12 01/16/22 08:12 DC Sugammadex Sodium (Bridion) 200 mg 1X ONCE 01/16/22 09:30 01/16/22 09:31 DC ASSESSMENT & PLAN ---S/p bladder repair 01/[address] A/P completed 01/16 without abnormality. Creat stable Barbour to stay in for one month. Good output SAM to stay in for one week. Nursing to complete drain education and barbour teaching. At this time, plan is to discharge on tomorrow. D/w Dr. Mckeon Urology will follow. DORIS ALBERT APRN Jan 18, 2022 10:26 ALLYSON MCKEON DO Jan 18, 2022 14:51
[2022-01-18] MEDS: PRENATAL MULTIVITAMIN TABLET. PO SCH (10:38)
[2022-01-18] MEDS: DOCUSATE SODIUM 100 MG CAPSULE. PO PRN ×2 (10:38→21:06)
[2022-01-18] MEDS: FAMOTIDINE 20 MG TABLET. PO SCH ×2 (10:38→21:06)
[2022-01-18] MEDS: FERROUS SULFATE 325 MG TABLET. PO SCH ×2 (10:38→18:42)
[2022-01-18 13:15] VITALS: BP 110/53
--- NOTE | 2022-01-18 15:10 | NUR ---
Chavez cath removed and replaced with leg bag, abdominal dressing dc'd, scant brown drainage, incision clean and dry with steri strips intact, drain site clean and dry with no redness,swelling or oozing, IV dc'd and up to shower with supervision, activity well tolerated
[2022-01-18 18:35] VITALS: BP 107/63
[2022-01-18 22:30] VITALS: BP 116/67
[2022-01-19 01:53] VITALS: BP 96/52
[2022-01-19 04:49] VITALS: BP 102/53
[2022-01-19 08:00] VITALS: BP 123/62
[2022-01-19 08:42] LABS: BASO % 0 % (0-3); EOS % 1 % (0-3); HEMATOCRIT 25.6 % (36.0-47.0); HEMOGLOBIN 8.6 g/dL (12.0-15.5); LYMPH # 2.4 x10^3/uL (1.0-4.8); LYMPH % 34 % (24-48); MEAN CORPUSCULAR HEMOGLOBIN 31 pg (25-35); MEAN CORPUSCULAR HGB CONC 34 g/dL (31-37); MEAN CORPUSCULAR VOLUME 93 fL (79-100); MONO # 0.3 x10^3/uL (0.0-1.1); MONO % 5 % (0-9); NEUT # 4.2 x10^3/uL (1.8-7.7); NEUT % 60 % (31-73); PLATELET COUNT 240 x10^3/uL (140-400); RED BLOOD COUNT 2.76 x10^6/uL (3.50-5.40); RED CELL DISTRIBUTION WIDTH 14.4 % (11.5-14.5)
[2022-01-19 08:52] LABS: CALCIUM 8.2 mg/dL (8.5-10.1); CREATININE 0.7 mg/dL (0.6-1.0); GFR 93.2; POTASSIUM 3.6 mmol/L (3.5-5.1)
[2022-01-19] MEDS: PRENATAL MULTIVITAMIN TABLET. PO SCH (09:00)
--- NOTE | 2022-01-19 10:05 | PDOC ---
PROGRESS NOTE DATE OF SERVICE: DATE: 01/19/22 TIME: 10:02 CHIEF COMPLAINT: Bladder repair status post section SUBJECTIVE: HPI: Overall tolerating Barbour catheter, having some bloody output Pain controlled. SAM with serosanguineous output Nursing able to translate as patient Faroese-speaking OBJECTIVE: Vital Signs: Vital Signs Date Time Temp Pulse Resp B/P (MAP) Pulse Ox O2 Delivery O2 Flow Rate FiO2 01/19/22 04:49 98.2 77 16 102/53 (69) 97 98.2 01/19/22 01:53 98.0 72 16 96/52 (67) 96 Room Air 98.0 01/18/22 22:30 98.1 72 18 116/67 (83) 97 Room Air 98.1 01/18/22 20:00 Room Air 01/18/22 18:35 98.3 98 20 107/63 (78) 98 Room Air 98.3 01/18/22 13:15 98.3 84 18 110/53 (72) 96 Room Air 98.3 01/18/22 11:46 Room Air 01/18/22 10:42 Room Air I & O Intake and Output 01/19/22 07:00 Intake Total 420 ml Output Total 2425 ml Balance -2005 ml Intake Oral 420 ml Output Urine Total 2390 ml Drainage Total 35 ml PHYSICAL EXAM: Physical Exam: General: Pleasant, no acute distress, well groomed Eyes: conjunctiva anicteric, eyes full range of motion ENT: moist oral mucosa, normal dentition Neck: Trachea midline, no masses Respiratory: unlabored breathing, not using accessory muscles, no crackles or wheezes Abdomen: nontender, nondistended, no hepatosplenomegaly, no masses, SAM with serosanguineous output : Barbour catheter draining [place] red output, no clots Skin: no rashes or skin lesions on visualized skin Psych: normal mood, affect. Alert and oriented x 3. LABS: Laboratory Tests Test 01/16/22 16:42 01/17/22 06:25 01/19/22 08:25 White Blood Count 9.1 x10^3/uL (4.0-11.0) 6.5 x10^3/uL (4.0-11.0) 7.0 x10^3/uL (4.0-11.0) Red Blood Count 2.87 x10^6/uL (3.50-5.40) 2.51 x10^6/uL (3.50-5.40) 2.76 x10^6/uL (3.50-5.40) Hemoglobin 8.8 g/dL (12.0-15.5) 7.8 g/dL (12.0-15.5) 8.6 g/dL (12.0-15.5) Hematocrit 26.4 % (36.0-47.0) 23.2 % (36.0-47.0) 25.6 % (36.0-47.0) Mean Corpuscular Volume 92 fL (79-100) 92 fL (79-100) 93 fL (79-100) Mean Corpuscular Hemoglobin 31 pg (25-35) 31 pg (25-35) 31 pg (25-35) Mean Corpuscular Hemoglobin Concent 33 g/dL (31-37) 34 g/dL (31-37) 34 g/dL (31-37) Red Cell Distribution Width 14.0 % (11.5-14.5) 14.3 % (11.5-14.5) 14.4 % (11.5-14.5) Platelet Count 139 x10^3/uL (140-400) 146 x10^3/uL (140-400) 240 x10^3/uL (140-400) Neutrophils (%) (Auto) 83 % (31-73) 60 % (31-73) Lymphocytes (%) (Auto) 11 % (24-48) 34 % (24-48) Monocytes (%) (Auto) 6 % (0-9) 5 % (0-9) Eosinophils (%) (Auto) 0 % (0-3) 1 % (0-3) Basophils (%) (Auto) 0 % (0-3) 0 % (0-3) Neutrophils # (Auto) 7.6 x10^3/uL (1.8-7.7) 4.2 x10^3/uL (1.8-7.7) Lymphocytes # (Auto) 1.0 x10^3/uL (1.0-4.8) 2.4 x10^3/uL (1.0-4.8) Monocytes # (Auto) 0.5 x10^3/uL (0.0-1.1) 0.3 x10^3/uL (0.0-1.1) Eosinophils # (Auto) 0.0 x10^3/uL (0.0-0.7) 0.0 x10^3/uL (0.0-0.7) Basophils # (Auto) 0.0 x10^3/uL (0.0-0.2) 0.0 x10^3/uL (0.0-0.2) Creatinine 0.6 mg/dL (0.6-1.0) 0.5 mg/dL (0.6-1.0) 0.7 mg/dL (0.6-1.0) Estimated GFR (Cockcroft-Gault) 111.3 137.4 93.2 Sodium Level 140 mmol/L (136-145) 138 mmol/L (136-145) Potassium Level 3.9 mmol/L (3.5-5.1) 3.6 mmol/L (3.5-5.1) Chloride Level 106 mmol/L (98-107) 104 mmol/L (98-107) Carbon Dioxide Level 27 mmol/L (21-32) 28 mmol/L (21-32) Anion Gap 7 (6-14) 6 (6-14) Blood Urea Nitrogen 5 mg/dL (7-20) 5 mg/dL (7-20) BUN/Creatinine Ratio 10 (6-20) Glucose Level 78 mg/dL (70-99) 91 mg/dL (70-99) Calcium Level 7.4 mg/dL (8.5-10.1) 8.2 mg/dL (8.5-10.1) Total Bilirubin 1.1 mg/dL (0.2-1.0) Aspartate Amino Transf (AST/SGOT) 28 U/L (15-37) Alanine Aminotransferase (ALT/SGPT) 20 U/L (14-59) Alkaline Phosphatase 55 U/L (46-116) Total Protein 5.0 g/dL (6.4-8.2) Albumin 2.5 g/dL (3.4-5.0) Albumin/Globulin Ratio 1.0 (1.0-1.7) Microbiology 01/16/22 Urine Culture - Final, Complete MEDICATIONS: Current Medications Medications (Trade) Dose Ordered Sig/Regino Start Time Stop Time Status Last Admin Dose Admin Acetaminophen (Tylenol) 650 mg PRN Q6HRS PRN 01/16/22 13:30 Albumin Human 500 ml @ As Directed STK-MED ONCE 01/16/22 12:30 01/16/22 12:31 DC Benzocaine (Americaine) 1 spray PRN Q4HRS PRN 01/16/22 13:30 01/18/22 21:09 1 SPRAY Cefazolin Sodium/ Dextrose (Ancef 2gm Premix) 2 gm STK-MED ONCE 01/16/22 12:00 01/19/22 08:06 DC Citric Acid/ Sodium Citrate (Bicitra) 30 ml 1X ONCE 01/16/22 08:00 01/16/22 08:01 DC 01/16/22 08:00 30 ML Diphenhydramine HCl (Benadryl Oral Elixir) 12.5 mg PRN Q6HRS PRN 01/16/22 13:30 01/17/22 14:42 12.5 MG Docusate Sodium (Colace) 100 mg PRN BID PRN 01/16/22 13:30 01/18/22 21:06 100 MG Famotidine (Pepcid) 20 mg BID 01/17/22 15:00 01/18/22 21:06 20 MG Fentanyl Citrate (Fentanyl 2ml Vial) 100 mcg STK-MED ONCE 01/16/22 13:13 01/16/22 13:13 DC Ferrous Sulfate (Feosol) 325 mg BIDWMEALS 01/16/22 17:00 01/18/22 18:42 325 MG Hydromorphone HCl (Dilaudid) 2 mg STK-MED ONCE 01/16/22 11:33 01/16/22 11:34 DC Ibuprofen (Motrin) 800 mg PRN Q8HRS PRN 01/16/22 13:30 01/18/22 23:33 800 MG Info (CONTRAST GIVEN -- Rx MONITORING) 1 each PRN DAILY PRN 01/16/22 19:30 01/18/22 02:34 DC Info (Do NOT chart on this placeholder) 1 ea PRN 1X PRN 01/16/22 13:30 01/18/22 02:34 DC Iohexol (Omnipaque 300 Mg/ml) 75 ml 1X ONCE 01/16/22 19:15 01/16/22 19:16 DC 01/16/22 19:48 75 ML Lidocaine HCl (Xylocaine-Mpf 1% 5ml Vial) 5 ml STK-MED ONCE 01/16/22 08:01 01/16/22 08:01 DC Midazolam HCl (Versed) 2 mg STK-MED ONCE 01/16/22 09:11 01/16/22 09:12 DC Morphine Sulfate 30 ml @ 0 mls/hr CONT PRN PRN 01/16/22 13:30 01/17/22 15:29 DC 01/16/22 23:33 6 MLS/HR Morphine Sulfate (Morphine Preservative Free) 10 mg STK-MED ONCE 01/16/22 08:04 01/16/22 08:05 DC Multivitamins (Thera M Plus) 1 tab DAILY 01/17/22 09:00 Naloxone HCl (Narcan) 0.4 mg PRN Q2MIN PRN 01/16/22 13:30 01/17/22 15:29 DC Oxycodone/ Acetaminophen (Percocet 5/325) 2 tab PRN Q4HRS PRN 01/16/22 13:30 01/17/22 23:34 2 TAB Oxytocin 500 ml @ 125 mls/hr CONT PRN 01/16/22 13:30 01/16/22 21:29 DC Oxytocin (Pitocin) 10 unit STK-MED ONCE 01/16/22 11:04 01/16/22 11:04 DC Multivit/ Folic Acid/Iron (Multivitamin ) 1 tab DAILY 01/17/22 09:00 01/18/22 10:38 1 TAB Propofol (Diprivan) 200 mg STK-MED ONCE 01/16/22 08:01 01/16/22 08:01 DC Ringer's Solution 1,000 ml @ 125 mls/hr Q8H 01/16/22 08:00 01/16/22 13:20 DC Rocuronium [place] (Zemuron) 50 mg STK-MED ONCE 01/16/22 11:33 01/16/22 11:33 DC Sodium Chloride 1,000 ml @ 25 mls/hr Q24H 01/16/22 13:30 01/17/22 15:29 DC 01/16/22 16:52 25 MLS/HR Sodium Chloride (Normal Saline Flush) 3 ml QSHIFT PRN 01/16/22 13:30 Succinylcholine Chloride (Anectine) 200 mg STK-MED ONCE 01/16/22 08:12 01/16/22 08:12 DC Sugammadex Sodium (Bridion) 200 mg 1X ONCE 01/16/22 09:30 01/16/22 09:31 DC ASSESSMENT & PLAN ---S/p bladder repair 01/[address] A/P completed 01/16 without abnormality. Creat stable. Having good urine output. Barbour to stay in for one month. We will do a cystogram in 1 month prior to Barbour catheter removal to confirm no bladder leakage. This will be done on an outpatient basis and patient okay to follow-up with our clinic and Dr. Mckeon. SAM to stay in for one week. Did have mild increasing output [address] Mckeon with [facility], he is planning to remove the SAM drain on in his clinic visit as long as the output is decreasing. Nursing to complete drain education and barbour teaching. Okay with discharge from urology standpoint D/w IRVIN Alberto Jan 19, 2022 10:04
[2022-01-19] MEDS: DOCUSATE SODIUM 100 MG CAPSULE. PO PRN (10:26)
[2022-01-19] MEDS: IBUPROFEN 400 MG TABLET. PO PRN (10:26)
[2022-01-19] MEDS: FERROUS SULFATE 325 MG TABLET. PO SCH (10:26)
[2022-01-19] MEDS: MULTIVITAMIN with MINERAL TABLET. PO SCH (10:26)
[2022-01-19] MEDS: FAMOTIDINE 20 MG TABLET. PO SCH (10:26)
[2022-01-19] MEDS ORDERED: IBUP-1060 PO (11:36)
[2022-01-19] MEDS ORDERED: FERR325T14 PO (11:36)
[2022-01-19] MEDS ORDERED: OXYC1TAB15 PO (11:36)
[2022-01-19] MEDS ORDERED: DOCU-109 PO (11:36)
--- NOTE | 2022-01-19 11:52 | PDOC ---
AGILE S[employer] COACH PROGRESS NOTE Date of Service: DATE: 01/19/22 TIME: 11:51 Subjective: Pt with good pain control. Rigo PO. Voiding. Minimal lochia. Objective: Vital Signs: Vital Signs Date Time Temp Pulse Resp B/P (MAP) Pulse Ox O2 Delivery O2 Flow Rate FiO2 01/18/22 08:15 Room Air 01/18/22 08:15 98.3 93 18 111/63 (79) 97 98.3 Vital Signs Date Time Temp Pulse Resp B/P (MAP) Pulse Ox O2 Delivery O2 Flow Rate FiO2 01/19/22 09:00 Room Air 01/19/22 08:00 97.5 70 18 123/62 (82) 97 97.5 Labs: Laboratory Tests Test 01/19/22 08:25 White Blood Count 7.0 x10^3/uL (4.0-11.0) Red Blood Count 2.76 x10^6/uL (3.50-5.40) L Hemoglobin 8.6 g/dL (12.0-15.5) L Hematocrit 25.6 % (36.0-47.0) L Mean Corpuscular Volume 93 fL (79-100) Mean Corpuscular Hemoglobin 31 pg (25-35) Mean Corpuscular Hemoglobin Concent 34 g/dL (31-37) Red Cell Distribution Width 14.4 % (11.5-14.5) Platelet Count 240 x10^3/uL (140-400) Neutrophils (%) (Auto) 60 % (31-73) Lymphocytes (%) (Auto) 34 % (24-48) Monocytes (%) (Auto) 5 % (0-9) Eosinophils (%) (Auto) 1 % (0-3) Basophils (%) (Auto) 0 % (0-3) Neutrophils # (Auto) 4.2 x10^3/uL (1.8-7.7) Lymphocytes # (Auto) 2.4 x10^3/uL (1.0-4.8) Monocytes # (Auto) 0.3 x10^3/uL (0.0-1.1) Eosinophils # (Auto) 0.0 x10^3/uL (0.0-0.7) Basophils # (Auto) 0.0 x10^3/uL (0.0-0.2) Sodium Level 138 mmol/L (136-145) Potassium Level 3.6 mmol/L (3.5-5.1) Chloride Level 104 mmol/L (98-107) Carbon Dioxide Level 28 mmol/L (21-32) Anion Gap 6 (6-14) Blood Urea Nitrogen 5 mg/dL (7-20) L Creatinine 0.7 mg/dL (0.6-1.0) Estimated GFR (Cockcroft-Gault) 93.2 Glucose Level 91 mg/dL (70-99) Calcium Level 8.2 mg/dL (8.5-10.1) L Laboratory Tests 01/19/22 08:25 Laboratory Tests 01/19/22 08:25 Laboratory Tests 01/19/22 08:25 Physical Exam: GENERAL: No apparent distress. Alert and oriented. HEENT: Head normocephalic, atraumatic. NECK: Supple LUNGS: Clear to auscultation. HEART: RRR, S1, S2 present, pulses intact ABDOMEN: Soft, positive bowel sounds. EXTREMITIES: No cyanosis or edema. NEUROLOGIC: Normal speech, normal tone PSYCHIATRIC: Normal affect, normal mood. SKIN: No ulceration. FFNT below umb No C/C/E Inc: C/D/I SAM this shift 10 cc Assessment & Plan: A/P 41y POD #3 s/p RLTCS with bladder injury 1.) PO - doing well 2.) Bladder repair urology seeing, plan to keep in for 4wks, will remove SAM 3.) Anemia Hgb 13.2 -> 8.6 4.) Covid vaccine given 07/28/21, 09/11/21 5.) TDAP given 12/08/21 6.) Cont PO care CAROLINA PITTS MD Jan 19, 2022 11:52
--- NOTE | 2022-01-19 14:23 | NUR ---
SS received referral regarding PAT consult for post depression and assistance with home healthcare for medical discharge needs. Mother is self pay. SOBRA pending. PAT team referral made for assessment and resources. Niles from PAT team to see pt and provide resources and referrals. Referral to [facility], ; fax [phone], made for community health. Pt accepted on services with [facility]. SS will continue to follow as needed.
[2022-01-19 15:00] VITALS: BP 115/53
[2022-01-19 18:00] VITALS: BP 120/60
--- NOTE | 2022-01-19 18:30 | NUR ---
Pt. discharges via wheelchair, pt. receives extensive instructions regarding chavez, post op site care, and cornelio drain care as well as follow up appointments with nakul valencia baby, urology, and Dr. Quinones. All dates and times for appointments as well as phone numbers were given to the pt. PT. will discharge with [facility] who will follow up with the pt. on Wednesday or Wednesday this week to help with CORNELIO and Chavez catheter care and supplies. PT. also discharges post PAT team evaluation for depression and receives instructions by multiple team members on following up and warning signs of worsening symptoms of depression or complications post delivery and post surgery. PT. also placed in contact with [facility] in order to help with resources at home. Pt. discharges with all of her belongings at [id number] via wheelchair, VSS. Daughter accompanies her mother.
--- NOTE | 2022-01-20 14:39 | DS ---
DATE OF DISCHARGE: 01/19/2022 ADMISSION DIAGNOSES: 1. Intrauterine at 39 weeks and 1 day by last menstrual period equal to 21-week ultrasound. 2. Active labor. 3. Transfer of care from [place]. 4. Advanced maternal age. 5. Previous section x 2. 6. History of demise with unclear etiology. 7. History of delivery at 30 weeks. 8. Status post COVID vaccine. 9. Status post tetanus, diphtheria and acellular pertussis vaccine. 10. Group B Streptococcus positive. DISCHARGE DIAGNOSES: 1. Intrauterine at 39 weeks and 1 day by last menstrual period equal to 21-week ultrasound. 2. Active labor. 3. Transfer of care from [place]. 4. Advanced maternal age. 5. Previous section x 2. 6. History of demise with unclear etiology. 7. History of delivery at 30 weeks. 8. Status post COVID vaccine. 9. Status post tetanus, diphtheria and acellular pertussis vaccine. 10. Group B Streptococcus positive. 11. Bladder injury. PROCEDURES: 1. Repeat low transverse . 2. Bladder repair. BRIEF HOSPITAL COURSE: The patient is a 41-year-old 4, para 2-1-0-2 who presented to Labor and Delivery at 39 weeks and 1 day by LMP equal to 21-week ultrasound with contractions. The patient was found to be 3 cm dilated with regular contractions. The patient was scheduled for a repeat the following Wednesday, but due to her being in active labor, we moved towards section. The patient's first delivery was a term spontaneous vaginal delivery. The second was a delivery at 30 weeks by section. The patient reported that the baby ultimately within the first week of life. They never gave her a diagnosis to why this may be the case with her. Following delivery, she again delivered by section. The patient underwent a repeat low transverse . During the course of delivery, the patient had a bladder injury. Urology was consulted for operative note on the and bladder repair, please see operative notes. Through the patient's postoperative course, the patient had a SAM drain measuring her output, which decreased progressively throughout her hospital stay. The patient also had a Chavez to remain in place for the next 2 weeks. By day #3, the patient was meeting all discharge criteria and was subsequently discharged home with the plans to remove her SAM drain that and to see Urology in 2-4 weeks. The patient was given an appointment for both of these appointments. Of note, the patient's hemoglobin on admission was 13.2 and after delivery, it was found to be 8.6. DISCHARGE INSTRUCTIONS: The patient was told not to lift anything greater than 20 pounds, have pelvic rest for 6 weeks, not to drive on narcotics. CALL IF: The patient was to call if she had fevers, chills, nausea, vomiting, abdominal pain or any additional questions or concerns. FOLLOWUP APPOINTMENT: The patient was to follow up on 01/22/2022 at 1:00 p.m. for an incision check and SAM drain removal. DISCHARGE MEDICATIONS: The patient was given a prescription for Percocet 5, 15 pills; Motrin 800 mg, 30 pills; ferrous sulfate 325 mg, 30 pills and Colace 100 mg, [address]: Ita TID: [id number]
== END 2022-01-19 18:34 | disposition home health service (06) | DRG 787 ==
LOC: 3 SO LND 07:12 → OBSVTOIN 09:00 → 3 SO LND 01-17 16:40
PROVIDERS: ADMIT Obstetrics & Gynecology; ATTEND Obstetrics & Gynecology
PROC: 10D00Z1 Extraction of Products of Conception, Low, Open Approach (ICD-10-PCS; principal; 2022-01-16)
PROC: 0TQB0ZZ Repair Bladder, Open Approach (ICD-10-PCS; 2022-01-16)
PROC: 0DNW0ZZ Release Peritoneum, Open Approach (ICD-10-PCS; 2022-01-16)
DX: O34.211 Maternal care for low transverse scar from previous cesarean delivery (principal); O71.5 Other obstetric injury to pelvic organs; O99.824 Streptococcus B carrier state complicating childbirth; O99.892 Other specified diseases and conditions complicating childbirth; N73.6 Female pelvic peritoneal adhesions (postinfective); N32.89 Other specified disorders of bladder; Z20.822 Contact with and (suspected) exposure to COVID-19; O99.02 Anemia complicating childbirth; D64.9 Anemia, unspecified; Z37.0 Single live birth; Z3A.39 39 weeks gestation of pregnancy
CPT/HCPCS: 36415; 74178; 80048; 80053; 81001; 82565; 85025; 85027; 86592; 86850; 86900; 86901; 87086; 87426; G0378; G0379; J0330; J0690; J1170; J2250; J2270; J2274; J2590; J2704; J3010; J3490; J7030; P9045; Q9967; U0003

== ENCOUNTER → 2022-02-24 | Outpatient (CLI) | payer SELFPAY ==
[~2022-02-24] MED LIST: DIATRIZOATE MEGLUMINE 18% 300 ML SOLUTION. BLADIN ONE; DOCU-109 PO; FERR325T14 PO; IBUP-1060 PO; OXYC1TAB15 PO
--- NOTE | 2022-02-24 16:13 | RAD ---
DG CYSTOGRAM Indication: Reason: Injured bladder during baby delivery / Spl. Instructions: / History: Comparison: None. Technique: Cystografin contrast was instilled into the urinary bladder via Chavez catheter with the pa tient in the supine position. Multiple spot fluoroscopic images were obtained in multiple obliquities . Fluoroscopic time: 0.7 minutes. Number of fluoroscopic images: 11 Findings: Urinary bladder slowly filled with contrast. Lobular appearance of the superior aspect of the urinary bladder. The patient was unable to tolerate significant distention of the urinary bladder. Approxima tely 150 mL were instilled. No evidence of contrast extravasation. Post void radiograph was obtained. IMPRESSION: 1. No evidence of contrast extravasation to suggest urinary bladder leak. Patient had difficulty ranjeet erating increased urinary bladder distention. Electronically signed by: Aaron Quinones DO (02/24/2022 4:11 PM) [id number]
== END ==
LOC: RAD 13:25
PROVIDERS: ATTEND Urology
DX: S37.20XA Unspecified injury of bladder, initial encounter (principal); N32.89 Other specified disorders of bladder; X58.XXXA Exposure to other specified factors, initial encounter; Y93.89 Activity, other specified; Y92.89 Other specified places as the place of occurrence of the external cause; Y99.8 Other external cause status
CPT/HCPCS: 74430; Q9958